=== PATIENT | male | born 1985 | race Caucasian/White ===

== ENCOUNTER 2018-06-17 06:56 | Emergency (ER) | payer SELFPAY ==
[~2018-06-17] VITALS: Ht 180.3 cm; Wt 135.5 kg
[2018-06-17 06:57] VITALS: BP 155/92; PULSE 62; RESP 17; Ht 180.3 cm; Wt 135.5 kg
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
== END 2018-06-17 09:05 | disposition home or self-care (01) ==
LOC: FTE 06:56
DX: R20.0 Anesthesia of skin (principal); G58.9 Mononeuropathy, unspecified
CPT/HCPCS: 76536